=== PATIENT | female | born 1980 | race Caucasian/White ===

== ENCOUNTER 2020-05-30 05:00 | Outpatient (CLI) | payer OTHER ==
[~2020-05-30] VITALS: Ht 152.4 cm; Wt 64.4 kg
[2020-05-30 06:25] LABS: ALBUMIN 3.8 g/dL (3.4-5.0); CARBON DIOXIDE 23.6 mmol/L (21-32); POTASSIUM 4.6 mmol/L (3.5-5.1); TOTAL BILIRUBIN 0.3 mg/dL (0.0-1.0)
[2020-05-30 06:32] LABS: CREATININE 10.2 mg/dL (0.6-1.3)
[2020-05-30 06:54] LABS: BILIRUBIN,URINE NEGATIVE (NEGATIVE); BLOOD, URINE 1+ (NEGATIVE); COLOR,URINE YELLOW (YELLOW); LEUKOCYTE ESTERASE ,URINE TRACE (NEGATIVE); NITRITE, URINE NEGATIVE (NEGATIVE); PH,URINE 7.5 (5.0-9.0); UGLUCOSE TRACE (NEGATIVE)
[2020-05-30 07:06] LABS: APPEARANCE,URINE SLIGHTLY HAZY (CLEAR)
[2020-05-30 07:07] LABS: RBC,URINE NONE SEEN /HPF (0-5)
[2020-05-30 07:08] LABS: WBC,URINE 0-5 /HPF (0-5)
== END 2020-05-30 23:59 | disposition home or self-care (01) ==
LOC: MLB 05:00 → MDS 05:37 → MMU 05:42 → EDSTATUS 07:30 → MMU 08:13 → MDS 08:13 → MLB 23:59
PROVIDERS: ATTEND Obstetrics & Gynecology
DX: Z01.812 Encounter for preprocedural laboratory examination (principal); Z20.828 Contact with and (suspected) exposure to other viral communicable diseases; G89.29 Other chronic pain; N80.9 Endometriosis, unspecified
CPT/HCPCS: 36415; 80053; 81001; 86886; 86900; 86901; 87086; U0003; J7120